=== PATIENT | female | born 1995 | race Caucasian/White ===

== ENCOUNTER 2023-05-15 09:59 | Emergency (ER) | payer BC, SELFPAY ==
[2023-05-15 10:15] VITALS: BP 137/83; PULSE 57; RESP 18; TEMP 36.8; O2SAT 96; BMI 26.3
[2023-05-15 10:35] LABS: Apearance,Urine Clear (Clear); Color,Urine Orange (Yellow); PH,Urine 5.5 (5.0-8.5)
[2023-05-15 10:36] LABS: Bilirubin,Urine Negative (Negative); Blood, Urine Negative (Negative); Glucose,Urine (UA) 1+ (Negative); Ketones,Urine Negative (Negative); Protein,Urine Negative (Negative); Specific Gravity, Urine 1.025 (1.005-1.030); UTC Leukocyte Esterase,Urine 1+ (Negative); UTC Nitrate,Urine Positive (Negative); Urobilinogen,Urine 0.2 EU/dl (0.2)
--- NOTE | 2023-05-15 10:36 | EXP.UTC ---
Discharge Plan Prescriptions Prescriptions: No Action fluconazole 150 mg tablet 150 mg PO ONCE Patient Comments: TAKE 1 TABLET BY MOUTH DIRECTED ONCE FOR YEAST SYMPTOMS, MAY REPEAT IN 5-7 DAYS IF STILL HAVING SYMPTOMS metronidazole 500 mg tablet 500 mg PO BID Patient Comments: TAKE 1 TABLET BY MOUTH TWICE DAILY WITH FOOD (AVOID ALOCHOL PRODUCTS) Referrals Follow up/Referrals: Alessandra Quiñonez [Primary Care Provider] - See instructions Discharge ED Provider: Marc Andujar [facility] [place] HPI General Stated complaint: POSSIBLE UTI Mode of Arrival: Ambulatory Source of Information: Patient Limitations: No Limitations Time Seen by Provider: 05/15/23 10:35 Description of Symptoms (Recalled from Triage Doc. by RN): burning urination, and frequent urination HEENT Symptoms (Recalled from RN notes): No Resp Symptoms (Recalled from RN notes): No Skin Symptoms (Recalled from RN notes): No MS Symptoms (Recalled from RN notes): No Functional Status (Recalled from RN notes): n/a History of Present Illness Provider Complaint: She states that for the past 2 days she has had low back pain, dysuria, and hematuria. Related Data Home Medications Medication Instructions Recorded Confirmed fluconazole 150 mg tablet 150 mg PO ONCE yeast 05/15/23 05/15/23 metronidazole 500 mg tablet 500 mg PO BID 05/15/23 05/15/23 Allergies Allergy/AdvReac Type Severity Reaction Status Date / Time No Known Allergies Allergy Verified 05/15/23 10:31 Worker's Comp Is this a Worker's Comp case?: No [facility] Disclaimer: The information contained in this section may have been updated after the patient was seen, as this information can be updated by other users. Social History Smoking Status: Never smoker alcohol intake: never current occupational status: employed Travel in the last 8 weeks: None ROS Obtained: Yes All systems reviewed & no additional complaints except as documented Constitutional Constitutional: Reports system reviewed and no additional complaints, except as documented, Denies chills and Denies fever(s) Eyes Eyes: Denies eye discharge ENT Ears, Nose, Mouth, and Throat: Denies dysphagia, Denies sore throat and Denies throat swelling Cardiovascular Cardiovascular: Denies chest pain and Denies dyspnea Respiratory Respiratory: Denies chest congestion, Denies cough and Denies dyspnea Gastrointestinal Gastrointestingal: Denies abdominal pain, constipation, diarrhea, dysphagia, nausea or vomiting Genitourinary Female Genitourinary: Reports as per HPI, Reports dysuria, Reports urinary frequency, Denies urinary incontinence, Reports urinary hesitancy and Reports urinary urgency Musculoskeletal Musculoskeletal: Denies arthralgias and Reports back pain Integumentary/Breasts Skin/Breast: Denies rash Neurologic Neurologic: Denies paresthesias Allergic/Immunologic Allergic/Immunologic: Denies throat swelling Physical Exam General General appearance: alert and in no apparent distress Head Head exam: atraumatic, normocephalic and normal inspection Eye Eye exam: Present normal appearance, PERRL and EOMI ENT ENT exam: Present normal exam, normal oropharynx, mucous membranes moist, TM's normal bilaterally and normal external ear exam Neck Neck exam: Present normal inspection, full ROM and trachea midline; Absent meningismus or lymphadenopathy Chest Chest inspection: Present normal inspection and symmetric chest wall rise; Absent tenderness Respiratory Respiratory exam: Present normal lung sounds bilaterally; Absent respiratory distress Cardiovascular Cardiovascular exam: Present regular rate and normal rhythm; Absent JVD Abdominal Exam Abdominal exam: Present soft and normal bowel sounds; Absent distention, tenderness or guarding Extremities Exam Extremities exam: Present normal inspection, full ROM and normal capillary refill; Absent calf tenderness Back Exam Back exam: Present normal inspection; Absent tenderness
[2023-05-15 11:02] VITALS: BP 137/83; PULSE 57; RESP 18; TEMP 36.8; O2SAT 96
== END 2023-05-15 11:02 | disposition home or self-care (01) ==
PROVIDERS: Emergency Provider Nurse Practitioner Family; PCP Family Medicine
DX: N39.0 Urinary tract infection, site not specified (principal); B96.89 Other specified bacterial agents as the cause of diseases classified elsewhere; M54.59 Other low back pain
CPT/HCPCS: 81003; 87086; 99204; 99212; G0463

== ENCOUNTER 2024-11-26 19:18 | Emergency (ER) | payer BC, SELFPAY ==
[2024-11-26 19:44] VITALS: BP 115/71; PULSE 83; RESP 16; TEMP 36.6; O2SAT 99; BMI 25.7
[2024-11-26 20:27] LABS: Microscopic, Urine URINE MICROSCOPIC (MICROSCOPIC)
[2024-11-26 20:28] LABS: Appearance,Urine CLEAR (Clear); Bilirubin,Urine Negative (Negative); Blood, Urine Negative (Negative); Color,Urine YELLOW (Yellow); Glucose,Urine (UA) Negative (Negative); Ketones,Urine Negative (Negative); Leukocyte Esterase,Urine Negative (Negative); Nitrate,Urine Negative (Negative); Protein,Urine Negative (Negative); Specific Gravity, Urine <= 1.005 (1.005-1.030); Urobilinogen,Urine 0.2 EU/dl (0.2)
[2024-11-26 20:29] LABS: Urine Pregnancy, HCG Qual. Negative (Negative)
--- NOTE | 2024-11-26 20:37 | HMH.EDGENADL ---
Discharge Plan Disposition Patient Disposition: Home, Self-Care Condition: Good Prescriptions Prescriptions: No Action fluconazole 150 mg tablet 150 mg PO ONCE Patient Comments: TAKE 1 TABLET BY MOUTH DIRECTED ONCE FOR YEAST SYMPTOMS, MAY REPEAT IN 5-7 DAYS IF STILL HAVING SYMPTOMS metronidazole 500 mg tablet 500 mg PO BID Patient Comments: TAKE 1 TABLET BY MOUTH TWICE DAILY WITH FOOD (AVOID ALOCHOL PRODUCTS) phenazopyridine [Pyridium] 200 mg tablet 200 mg PO Q8H 2 Days Qty: 6 0RF sulfamethoxazole-trimethoprim [Bactrim DS] 800-160 mg Tablet 1 tab PO BID Qty: 14 0RF fluconazole 150 mg tablet 150 mg PO ONCE Qty: 1 1RF Referrals Follow up/Referrals: Alessandra Quiñonez [Primary Care Provider, Medical] - See instructions Activity Restrictions/Add. Instructions Additional Instructions/Restrictions: As we discussed, I saw on my ultrasound through your abdomen multiple cysts of your left ovary. Within the confines of a transabdominal ultrasound I saw appropriate blood flow to your left ovary. Given that you are feeling better and after shared decision making regarding a transvaginal ultrasound we will discharge you at this time. Should your symptoms change or worsen please return to the emergency department. I recommend taking NSAID such as ibuprofen to help with the pain. Clinical Impressions Clinical Impression: Cyst of left ovary Instructions Patient Instructions: DI for Acute Abdominal Pain Print Language Print Language: Gabonese Discharge ED Provider: Nadeem Costa Adult HPI General Chief complaint: Abdominal Pain Stated complaint: Abdominal Pain Time Seen by Provider: 11/26/24 20:37 Mode of Arrival: Ambulatory Source of Information: Patient Description of Symptoms (Recalled from ER Triage Doc. by RN): Pt was sitting at home when she developed a sharp pain in her left pelvic region. Pt has an IUD 2 yrs. LMP 11/10/24. LBM today. Denies any nausea or vomiting. Pain 7/10 worse when trying to urinate. History of Present Illness HPI narrative: The patient presents with a chief complaint of acute onset of severe lower abdominal pain. Symptoms began earlier today at approximately 6:00 PM while she was sitting and doing her nails. The pain started on the right side and quickly radiated across her lower abdomen. The severity was such that she initially couldn't stand up straight or sit comfortably. She describes the pain as sharp and sudden. The patient attempted to alleviate the pain by taking a hot bath and Tylenol, which provided some relief, but the pain persisted. She reports that urination is now painful, specifically noting that it's not a uterine pain but rather a muscular discomfort. The patient mentions a similar, though less severe, episode occurred yesterday while eating dinner, which resolved quickly with ibuprofen. The patient denies any nausea, vomiting, or pain in her sides or back. She has no history of kidney stones. She reports having been evaluated for ovarian cysts in the past but was told she didn't have any beyond what was considered normal for her. The patient has an IUD in place. Her last menstrual period ended on November 10. Prior to this episode, the patient denies feeling sick or experiencing any nausea, vomiting, diarrhea, or constipation. She has no known medical conditions and does not take any daily medications. Please note that above description of symptoms, in this electronic medical record under categorization of recalled from ER triage doctor by RN are reflective of an initial nursing assessment, however, is not reflective of my full history and physical exam that was personally taken and clarified. Consequentially, this preceding description of symptoms, which may include the patient's categorized chief complaint in the EMR, do not reflect my personal clinical impression, and the ultimate description of history of present illness and patient stated complaints should be deferred to this section of the note. Unless stated otherwise or congruent with this section of the note, additional signs, symptoms, or incongruence should be interpreted as inaccurate with my clinical impression. Related Data Home Medications ?Medication ?Instructions ?Recorded ?Confirmed fluconazole 150 mg tablet 150 mg PO ONCE yeast 05/15/23 05/15/23 metronidazole 500 mg tablet 500 mg PO BID 05/15/23 05/15/23 Previous Rx's ?Medication ?Instructions ?Recorded fluconazole 150 mg tablet 150 mg PO ONCE 1 dose #1 tab 05/15/23 phenazopyridine 200 mg tablet 200 mg PO Q8H 2 days #6 tabs 05/15/23 (Pyridium) sulfamethoxazole 800 1 tab PO BID #14 tabs 05/15/23 mg-trimethoprim 160 mg tablet (Bactrim DS) Allergies Allergy/AdvReac Type Severity Reaction Status Date / Time No Known Allergies Allergy Verified 05/15/23 10:31 [facility] Disclaimer: The information contained in this section may have been updated after the patient was seen, as this information can be updated by other users. Social History (Updated 05/15/23 @ 10:52 by Marc Andujar APRN) Smoking Status: Never smoker alcohol intake: never current occupational status: employed Travel in the last 8 weeks?: None Have you lived/traveled outside [place] in past 30 days?: No Contact w/someone who lives/traveled outside [place] past 30 days?: No Exposure to someone with infectious disease in past 14 days?: No Do you have a fever (greater than 100.4 F or 38 C)?: No Have you tested positive for COVID-19?: No Exposed to someone with COVID-19 in past 14 days?: No Do you have a sore throat?: No Do you have a cough?: No Do you have any weakness?: No Do you have any diarrhea?: No Are you experiencing any unusual bleeding?: No Do you have any muscle aches/pain?: No Do you have any abdominal pain?: No Are you experiencing loss of taste or smell?: No ROS Obtained: Yes other As per HPI Physical Exam General General appearance: alert and in no apparent distress Head Head exam: atraumatic and normocephalic Eye Eye exam: Present normal appearance Neck Neck exam: Present normal inspection Chest Chest inspection: Present normal inspection and symmetric chest wall rise Respiratory Respiratory exam: Present normal lung sounds bilaterally; Absent respiratory distress Cardiovascular Cardiovascular exam: Present regular rate and normal rhythm Abdominal Exam Abdominal exam: Present soft Neurological Exam Neurological exam: Present alert and oriented X3 Psychiatric Psychiatric exam: Present normal affect and normal mood Skin Skin exam: Present warm and dry Other Other exam information: Suprapubic abdominal tenderness, no guarding or rebound tenderness Medical Decision Making Medical Records Medical records reviewed: Yes I reviewed the patient's medical records. Screening: Per USPSTF and CDC recommendations, given the prevalence of disease in our region, it is our hospital?s policy to screen for HIV and viral Hepatitis for all patients aged 18 and over and those with ongoing risk factors. Dennis Inquiry Pt receiving controlled substance: No Vital Signs: 11/26/24 19:44 11/26/24 21:18 Temperature 97.9 F 98.9 F Temperature Source Oral Pulse Rate 68 Pulse Rate [Left] 83 Respiratory Rate 16 14 Blood Pressure 114/58 L Blood Pressure [Right Arm] 115/71 Blood Pressure Mean [Right Arm] 85 Blood Pressure Source [Right Arm] Automatic Cuff Blood Pressure Position Sitting Blood Pressure Position [Right Arm] Sitting 02 Sat by Pulse Oximetry 99 Oxygen Delivery Method Room Air Room Air Lab Data Lab Results 11/26/24 20:15: Urine Color Yellow, Urine Appearance Clear, Urine pH 6.0, Ur Specific [place] <= 1.005, Urine Protein Negative, Urine Glucose (UA) Negative, Urine Ketones Negative, Urine Blood Negative, Urine Nitrate Negative, Urine Bilirubin Negative, Urine Urobilinogen 0.2, Ur Leukocyte Esterase Negative, Urine RBC Occasional, Urine WBC Occasional, Ur Squamous Epith Cells 20-50, Urine Bacteria 1+, Urine HCG, Qual Negative 11/26/24 20:35: WBC 9.9, RBC 4.31, Hgb 13.3, Hct 38.0, MCV 88.2, MCH 30.9, MCHC 35.0, RDW 12.4, Plt Count 265, MPV 10.0, Neut % (Auto) 68.3, Lymph % (Auto) 24.6, [place] % (Auto) 5.6, Eos % (Auto) 0.7, Baso % (Auto) 0.6, Neut # (Auto) 6.7, Lymph # (Auto) 2.4, [place] # (Auto) 0.6, Eos # (Auto) 0.1, Baso # (Auto) 0.1 11/26/24 20:35 Orders (Tests/Meds): ORDERS Category Date Time Status POCUS Point of Care (ER Only) Stat Exams 11/26/24 20:55 Completed Complete Blood Count Auto Diff Stat Lab 11/26/24 20:35 Completed Urinalysis and Microscopic Stat Lab 11/26/24 20:15 Completed Urine , HCG Qual. Stat Lab 11/26/24 20:15 Completed Medical Decision Narrative: Patient with history and exam per above presenting for evaluation of acute onset, largely resolved, suprapubic abdominal pain Diagnoses considered include ruptured ovarian cyst, ovarian torsion, pyelonephritis, urolithiasis, among others ED workup and treatment included: ORDERS Category Date Time Status POCUS Point of Care (ER Only) Stat Exams 11/26/24 20:55 Completed Complete Blood Count Auto Diff Stat Lab 11/26/24 20:35 Completed Urinalysis and Microscopic Stat Lab 11/26/24 20:15 Completed Urine , HCG Qual. Stat Lab 11/26/24 20:15 Completed Labs were independently interpreted by me, significant for no hematuria on urinalysis [id number] ultrasound was performed which reveals bilateral flow to ovaries, left-sided ovarian cyst. No free fluid appreciated My clinical impression at this time is most consistent with likely ruptured ovarian cyst versus mittelschmerz. Patient was offered radiology perform transvaginal ultrasound however declines at this time after discussion of risks and benefits of further diagnostic imaging I discussed my clinical impression with patient and answered all questions. At this time, the evidence for any other entities in the differential is insufficient to warrant any further testing or ED observation. This was explained to the patient. The patient was advised that persistent or worsening symptoms require further evaluation. Critical Care Critical Care Time Critical Care Time: No
[2024-11-26 20:47] LABS: Bacteria,Urine 1+ /lpf; RBC,Urine Occasional #/hpf (0-3); Squamous Epithelial Cell,Urine 20-50 #/hpf (0-5); WBC,Urine Occasional #/hpf (0-3)
[2024-11-26 20:50] LABS: Basophils # 0.1 K/mm3 (0-0.2); Basophils % 0.6 % (0.1-2.0); Eosinophils # 0.1 Kmm3 (0.0-0.4); Eosinophils % 0.7 % (0.1-12.0); Hemoglobin 13.3 g/dL (12.2-16.2); Immature Granulocytes # 0.02 10^3uL; Immature Granulocytes % 0.2 %; Lymphocytes # 2.4 K/mm3 (0.7-4.5); Lymphocytes % 24.6 % (10-50); Mean Corpuscular Hemoglobin 30.9 pg (27.0-31.2); Mean Corpuscular Volume 88.2 fl (81-99); Monocytes # 0.6 K/mm3 (0.1-1.0); Monocytes % 5.6 % (1.7-9.3); Neutrophils # 6.7 K/mm3 (1.8-7.8); Neutrophils % 68.3 % (37.0-80.0); Nucleated Red Blood Cells # 0 10^3/uL; Nucleated Red Blood Cells % 0 %; Platelet Count 265 K/mm3 (142-424); Red Blood Count 4.31 M/mm3 (4.20-5.40); Red Cell Distribution Width 12.4 % (11.5-17.5); Red Cell Distribution Width-SD 39.9 fL; White Blood Count 9.9 K/mm3 (4.8-10.8)
[2024-11-26 21:18] VITALS: BP 114/58; PULSE 68; RESP 14; TEMP 37.2; O2SAT 100
== END 2024-11-26 21:20 | disposition home or self-care (01) ==
PROVIDERS: Emergency Provider Emergency Medicine; PCP Family Medicine
DX: R10.2 Pelvic and perineal pain (principal); N83.202 Unspecified ovarian cyst, left side
CPT/HCPCS: 81001; 81025; 85025; 99283